=== PATIENT | female | born 1985 | race Caucasian/White ===

== ENCOUNTER 2016-05-16 09:21 | Day surgery (SDC) | END 2016-05-16 18:15 | disposition home or self-care (01) | DX: Z30.2 Encounter for sterilization (principal) | CPT/HCPCS: 58600; 84703; 85025; 86850; 86900; 86901; 88302; J1885; J2175; J2250; J2270; J2405; J2765; J3010; Z7512; Z7610 ==

== ENCOUNTER 2016-05-20 15:37 | Emergency (ER) | payer MEDICAID ==
[~2016-05-20] VITALS: Wt 62.0 kg
--- NOTE | 2016-05-20 16:34 | EN ---
Date/Time of Note Date/Time of Note DATE: 05/20/16 TIME: 16:32 ER Progress Note Medical screening exam performed. Patient complaining of pain and wound dehiscence from tubal ligation 4 days ago. She will be sent to ED2 for further evaluation. SUNIL FINNEY NP May 20, 2016 16:34
[2016-05-20] MEDS ORDERED: CEPH-443 PO (17:19)
--- NOTE | 2016-05-20 17:21 | ERD ---
ER Documentation Chief Complaint Date/Time DATE: 05/20/16 TIME: 17:20 Chief Complaint here for wound check on lower abdomen, trang has mildy dehisced HPI This 30-year-old female complains of opening of the wound of the tube ligation scar which was performed 4 days ago. She has fevers, bleeding or discharge. ROS All systems reviewed and are negative except as per history of present illness. Medications Home Meds Active Scripts Cephalexin* (Keflex*) 500 Mg Capsule, 500 MG PO QID for 5 Days, CAP Prov:EKTA ADAN MD 05/20/16 Allergies Allergies: Coded Allergies: No Known Drug Allergy (Verified Allergy, Unknown, 07/22/08) PMhx/Soc History of Surgery: No Anesthesia Reaction: No Hx Neurological Disorder: No Hx Respiratory Disorders: No Hx Cardiac Disorders: No Hx Psychiatric Problems: No Hx Miscellaneous Medical Probl: No Hx Alcohol Use: No Hx Substance Use: No Hx Tobacco Use: No Physical Exam Vitals Vital Signs Date Time Temp Pulse Resp B/P Pulse Ox O2 Delivery O2 Flow Rate FiO2 05/20/16 15:39 98.6 100 20 127/73 100 Physical Exam Const: [] Alert, not ill-appearing. Head: Atraumatic Eyes: Normal Conjunctiva ENT: Normal External Ears, Nose and Mouth. Neck: Full range of motion..~ No meningismus. Resp: Clear to auscultation bilaterally Cardio: Regular rate and rhythm, no murmurs Abd: Soft, non tender, non distended. Normal bowel sounds. Examination of the wound shows trang in the midportion of the wound which did not cross incision site. The wound is open without bleeding, discharge, warmth or erythema. Skin: No petechiae or rashes Back: No midline or flank tenderness Ext: No cyanosis, or edema Neur: Awake and alert Psych: Normal Mood and Affect Results 24 hrs Current Medications Medications (Trade) Dose Ordered Sig/Eleni Route PRN Reason Start Time Stop Time Status Last Admin Dose Admin Lidocaine (Xylocaine 1% (Mdv) 20 ml) 20 ml ONCE ONCE SC 05/20/16 17:30 05/20/16 17:31 Procedures/MDM Patient presents with a open wound from surgery 4 days ago. Appears to stable not placed over the incision on they may have slipped. Procedure note-the laceration was prepped with Betadine. 1 mL lidocaine was used for defecation. 3 previous trang were removed and 4 trang were placed to reapproximate the laceration. Patient tolerated procedure well. Patient be discharged home with a prescription of Keflex and instructions for stapled 145 days. She should return sooner for fevers,, vomiting, redness, new or worsening symptoms . His no evidence of any deep abdominal pain or signs or symptoms to suggest intra- abdominal abscess or complications. Departure Diagnosis: Primary Impression: Encounter for wound re-check Condition: Stable Patient Instructions: Post Op Wound Check, Pain Additional Instructions: SACA GRAPAS 4-5 SHERMAN. Cheque otro vez con krause doctor primario en el proximo sherman or regresa para mas o nueva simptomas. EKTA ADAN MD May 20, 2016 17:21
[2016-05-20] MEDS ORDERED: LIDOCAINE 1% (MDV) 20 ML INJ SC ONE (17:30)
== END 2016-05-20 18:56 | disposition home or self-care (01) ==
LOC: FTE 15:37
DX: Z48.01 Encounter for change or removal of surgical wound dressing (principal); T81.31XA Disruption of external operation (surgical) wound, not elsewhere classified, initial encounter; Y65.8 Other specified misadventures during surgical and medical care
CPT/HCPCS: 12020; Z7502; Z7610